=== PATIENT | female | born 1950 | race Caucasian/White ===

== ENCOUNTER 2019-05-02 15:13 | Outpatient (CLI) | payer MEDICARE, OTHER ==
--- NOTE | 2019-05-02 17:53 | MRI Report ---
Reason: HAND WEAKNESS, DYSARTHRIA, MEMORY LOSS Procedure Date: 05/02/2019 Accession Number: [id number] / [id number] Procedure: MRI - Brain W/O CPT Code: Final Report FULL RESULT: EXAM: MRI BRAIN WITHOUT CONTRAST EXAM DATE: 05/02/2019 04:55 PM. CLINICAL HISTORY: HAND WEAKNESS, DYSARTHRIA, MEMORY LOSS. COMPARISON: CT head without contrast 03/19/2019. TECHNIQUE: Multiplanar, multisequence T1-weighted and fluid-sensitive MR sequences of the brain were performed. Sequences optimized for routine evaluation. Other: None. IV Contrast: None. FINDINGS: Diffusion weighted sequence shows no evidence for acute infarct. There is no mass, mass effect, midline shift or abnormal extraaxial fluid collection. Size and configuration of the ventricles are normal. Trace T2 hyperintensities in the periventricular cerebral white matter. Signal within the cortex and white matter otherwise normal. Brainstem and cerebellum appear normal. Right medial frontal superior parafalcine dural based calcification measures 16 x 8 mm, unchanged. Major intracranial flow voids appear normal. Incidental enlargement of inferior [place] bilaterally, compatible with petrous apex cephalocele. Globes, orbits, optic nerve sheath complex, optic chiasm, pituitary, cavernous sinus and Meckel's cave appear otherwise normal. Paranasal sinuses and mastoid air cells appear well aerated. Marrow signal and extracranial soft tissue appear normal. Craniocervical junction and visualized upper cervical cord appear unremarkable. IMPRESSION: 1. No acute abnormality. No acute infarct, intracranial hemorrhage, midline shift or hydrocephalus. 2. 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 3. Mild diffuse cerebral volume loss without focal volume loss. Qualitatively, the hippocampi volumes appear symmetric without disproportionate volume loss. RADIA
--- NOTE | 2019-05-02 18:06 | MRI Report ---
Reason: DYSARTHRIA, HAND WEAKNESS, MEMORY LOSS Procedure Date: 05/02/2019 Accession Number: [id number] / [id number] Procedure: MRI - Cervical Spine W/O CPT Code: Final Report FULL RESULT: EXAM: MRI CERVICAL SPINE WITHOUT CONTRAST EXAM DATE: 05/02/2019 05:08 PM. CLINICAL HISTORY: DYSARTHRIA, HAND WEAKNESS, MEMORY LOSS. COMPARISONS: None. TECHNIQUE: Multiplanar, multisequence T1-weighted and fluid-sensitive sequences of the cervical spine without contrast. Other: None. FINDINGS: Neurologic Structures: The visualized posterior fossa structures are unremarkable. No signal abnormality in the visualized spinal cord. Alignment: No scoliosis or spondylolisthesis. Bone Marrow: T1 hyperintense T2 hyperintense typical hemangioma in the left paracentral T1. Multifocal typical hemangiomas with T1 hyperintensities in the left superolateral posterior C7 in the right posterolateral C6 and T1 vertebrae. Interspace Levels/Facets: C1-C2: Unremarkable. C2-C3: Unremarkable. C3-C4: Left greater than right uncovertebral hypertrophy. Moderate left mild right foraminal narrowing. No significant canal narrowing. C4-C5: Left greater than right facet arthropathy. Mild bilateral foraminal narrowing. No significant canal narrowing. C5-C6: Minimal bilateral uncovertebral hypertrophy. Mild bilateral foraminal narrowing. No significant canal narrowing. C6-C7: Minimal bilateral uncovertebral hypertrophy. No significant canal or foraminal narrowing. C7-T1: Unremarkable. Musculature: Normal. No edema or fatty atrophy. Other: Incidental 2.1 x 1.6 cm left thyroid nodule. The paravertebral and prevertebral soft tissues are normal. IMPRESSION: 1. Foraminal narrowing most pronounced on the left at C3-C4, could be correlated with left C4 radiculopathy if symptomatic. 2. No significant canal narrowing. No cord impingement or cord signal abnormality. 3. Incidental 2.1 cm left thyroid nodule. Given size, recommend follow-up ultrasound. RADIA
== END 2019-05-02 15:14 | disposition home or self-care (01) ==
LOC: DI 15:13
PROVIDERS: ATTEND Psychiatry & Neurology Neurology
DX: M54.12 Radiculopathy, cervical region (principal); M48.02 Spinal stenosis, cervical region; R29.898 Other symptoms and signs involving the musculoskeletal system; R47.1 Dysarthria and anarthria; R41.3 Other amnesia; E04.1 Nontoxic single thyroid nodule
CPT/HCPCS: 70551; 72141

== ENCOUNTER 2019-07-23 12:40 | Outpatient (CLI) | payer MEDICARE, OTHER ==
[2019-07-23 16:48] LABS: FOLATE > 49.60 ng/mL (5.90 - >24.8)
== END 2019-07-23 12:41 | disposition home or self-care (01) ==
LOC: LAB 12:40
PROVIDERS: ATTEND Psychiatry & Neurology Neurology
DX: G70.00 Myasthenia gravis without (acute) exacerbation (principal)
CPT/HCPCS: 36415; 81599; 82550; 82607; 82746; 83519; 86255

== ENCOUNTER 2020-07-05 16:57 | Outpatient (CLI) | payer MEDICARE, OTHER ==
[2020-07-05 17:22] LABS: BASOPHILS % (AUTO) 0.5 %; EOSINOPHILS # (AUTO) 0.1 10^3/uL (0.0-0.7); EOSINOPHILS % (AUTO) 1.6 %; HGB - HEMOGLOBIN 14.6 g/dL (12.0-16.0); LYMPHOCYTES % (AUTO) 38.9 %; MEAN CORPUSCULAR HEMOGLOBIN 30.9 pg (27.0-31.0); MEAN CORPUSCULAR HGB CONC 32.4 g/dL (32.0-36.0); MEAN CORPUSCULAR VOLUME 95.1 fL (81.0-99.0); MEAN PLATELET VOLUME 8.9 fL (7.9-10.8); MONOCYTES # (AUTO) 0.8 10^3/uL (0.0-1.0); MONOCYTES % (AUTO) 10.1 %; NEUTROPHILS # (AUTO) 3.8 10^3/uL (1.5-6.6); NEUTROPHILS % (AUTO) 48.8 %; PLT - PLATELET COUNT 271 10^3/uL (130-450); RED BLOOD COUNT 4.73 10^6/uL (4.20-5.40); RED CELL DISTRIBUTION WIDTH 12.2 % (12.0-15.0); WHITE BLOOD COUNT 7.7 x10^3/uL (4.8-10.8)
[2020-07-05 17:41] LABS: ALBUMIN 4.5 g/dL (3.2-5.5); ALBUMIN/GLOBULIN RATIO 1.4 (1.0-2.2); ALKALINE PHOSPHATASE 59 IU/L (42-121); ALT ALANINE AMINOTRANSFERASE 32 IU/L (10-60); AST ASPARTATE AMINOTRANSFERASE 28 IU/L (10-42); BILIRUBIN,TOTAL 0.4 mg/dL (0.2-1.0); BUN - BLOOD UREA NITROGEN 22 mg/dL (6-20); CALCIUM 9.6 mg/dL (8.5-10.3); CARBON DIOXIDE - CO2 26 mmol/L (21-32); CHLORIDE 101 mmol/L (101-111); CHOL/HDL RATIO 5.4 (<4.4); CHOLESTEROL 282 mg/dL; CREATININE 0.9 mg/dL (0.4-1.0); GLUCOSE 95 mg/dL (70-100); HDL CHOLESTEROL 52 mg/dL; LDL CHOLESTEROL,CALCULATED 163 mg/dL; LDL/HDL RATIO 3.1 (<4.4); TOTAL PROTEIN 7.7 g/dL (6.7-8.2); VLDL CHOLESTEROL 67 mg/dL
[2020-07-05 17:54] LABS: THYROID STIMULATING HORMONE 2.57 uIU/mL (0.34-5.60)
[2020-07-05 17:56] LABS: FREE T4 (FREE THYROXINE) 0.89 ng/dL (0.58-1.64)
== END 2020-07-05 16:58 | disposition home or self-care (01) ==
LOC: LAB 16:57
PROVIDERS: ATTEND Psychiatry & Neurology Neurology
DX: G70.00 Myasthenia gravis without (acute) exacerbation (principal); E03.9 Hypothyroidism, unspecified; E78.2 Mixed hyperlipidemia; I10 Essential (primary) hypertension
CPT/HCPCS: 36415; 80053; 80061; 83721; 84439; 84443; 85025

== ENCOUNTER 2020-08-05 14:44 | Outpatient (CLI) | payer MEDICARE, OTHER ==
--- NOTE | 2020-08-12 11:40 | Mammography Report ---
BILATERAL DIGITAL SCREENING MAMMOGRAM 3D/2D: 08/05/2020 CLINICAL: Routine screening. Comparison is made to exams dated: 09/26/2017 mammogram, 04/30/2016 mammogram, and 02/23/2013 mammogr am - [facility]. The tissue of both breasts is predominantly fatty. No significant masses, calcifications, or other findings are seen in either breast. There has been no significant interval change. IMPRESSION: NEGATIVE There is no mammographic evidence of malignancy. A 1 year screening mammogram is recommended. This exam was interpreted at Station ID: [id number]. NOTE: For mammograms, a report in lay terms will be sent to the patient. Approximately 15% of breast malignancies will not be visualized mammographically. In the management of a palpable breast mass, a negative mammogram must not discourage biopsy of a clinically suspicious lesion. Electronically Signed By: Bernard West acr/penrad:08/12/2020 08:39:58 ACR BI-RADS Category 1: Negative 3341F PARENCHYMAL PATTERN: (F) - The breast(s) demonstrate(s) diffuse fatty replacement. BI-RADS CATEGORY: (1) - 1 RECOMMENDATION: (ANNUAL) - Recommend routine annual screening mammography. [id number] 1 year screening LATERALITY: (B)
== END 2020-08-05 14:45 | disposition home or self-care (01) ==
LOC: DI 14:44
DX: Z12.31 Encounter for screening mammogram for malignant neoplasm of breast (principal)

== ENCOUNTER 2020-10-16 15:58 | Outpatient (CLI) | payer MEDICARE, OTHER ==
[2020-10-16 16:17] LABS: BASOPHILS % (AUTO) 0.4 %; EOSINOPHILS # (AUTO) 0.1 10^3/uL (0.0-0.7); EOSINOPHILS % (AUTO) 1.6 %; HCT - HEMATOCRIT 45.4 % (37.0-47.0); HGB - HEMOGLOBIN 14.9 g/dL (12.0-16.0); LYMPHOCYTES # (AUTO) 3.4 10^3/uL (1.5-3.5); LYMPHOCYTES % (AUTO) 41.2 %; MEAN CORPUSCULAR HEMOGLOBIN 30.6 pg (27.0-31.0); MEAN CORPUSCULAR HGB CONC 32.8 g/dL (32.0-36.0); MEAN CORPUSCULAR VOLUME 93.2 fL (81.0-99.0); MONOCYTES # (AUTO) 0.7 10^3/uL (0.0-1.0); MONOCYTES % (AUTO) 8.9 %; NEUTROPHILS # (AUTO) 3.9 10^3/uL (1.5-6.6); NEUTROPHILS % (AUTO) 47.7 %; PLT - PLATELET COUNT 289 10^3/uL (130-450); RED BLOOD COUNT 4.87 10^6/uL (4.20-5.40); RED CELL DISTRIBUTION WIDTH 12.1 % (12.0-15.0); WHITE BLOOD COUNT 8.3 x10^3/uL (4.8-10.8)
[2020-10-16 16:25] LABS: ALBUMIN 4.6 g/dL (3.2-5.5); ALBUMIN/GLOBULIN RATIO 1.4 (1.0-2.2); BILIRUBIN,TOTAL 0.4 mg/dL (0.2-1.0); CALCIUM 9.8 mg/dL (8.5-10.3); CREATININE 0.8 mg/dL (0.4-1.0); POTASSIUM 3.9 mmol/L (3.5-5.0); TOTAL PROTEIN 7.9 g/dL (6.7-8.2)
[2020-10-16] MEDS ORDERED: IOVERSOL 320 100 ML VIAL IVP ONE ×2 (18:09→18:48)
--- NOTE | 2020-10-17 10:56 | CT Report ---
PROCEDURE: CHEST W INDICATIONS: Myasthenia gravis CONTRAST: IV CONTRAST: Optiray 320 ml: 100 PO CONTRAST: *NO PO CONTRAST TECHNIQUE: After the administration of intravenous contrast, 5 mm thick sections acquired from the pulmonary api pranav to the posterior costophrenic angles. 7 mm thick coronal MIP reformats were acquired. For radia tion dose reduction, the following was used: automated exposure control, adjustment of mA and/or kV according to patient size. COMPARISON: None. FINDINGS: Image quality: Excellent. Lungs and pleura: No acute air space opacities. No pleural effusions or pneumothorax. Central and peripheral airways are patent and normal in caliber. Mediastinum: Heart size is normal. No pericardial effusion. No mediastinal or hilar adenopathy by size criteria. There is no sign of thymoma within the anterior mediastinum. Thoracic aorta and centr al pulmonary arteries are normal in size. Esophagus is normal in caliber. No hiatal hernia. Bones and chest wall: No suspicious bony lesions. No vertebral body compression fractures. No axil tone or supraclavicular adenopathy by size criteria. The thyroid is asymmetric, virtually absent on the right, without visualized surgical clips, and with a heterogeneous nodule mildly enlarging the le ft thyroid lobe, measuring up to 2.2 cm in maximal AP dimension... Abdomen: Visualized upper abdominal solid organs appear normal. Upper abdominal bowel loops are nor mal in caliber. IMPRESSION: No evidence of thymoma or other mass lesion throughout the chest or visualized upper abdomen. There is an unexpected finding of a thyroid mass on the left, measuring up to 2.2 cm, and virtual abs ence of the right thyroid lobe without surgical clips. No comparison study is available to establish chronicity of this finding. Please refer to the clinical recommendation statement below regarding rec ommendation for obtaining a dedicated left thyroid ultrasound in this patient. If old comparison ches t CT scanning is available for review it would be valuable to obtain related to the thyroid abnormali ty. CLINICAL RECOMMENDATION STATEMENTS: In patients <35 years with an ITN detected on CT, MRI, or extrathyroidal ultrasound, the Committee re commends further evaluation with dedicated thyroid ultrasound if the nodule is ?1 cm and has no suspi cious imaging features, and if the patient has normal life expectancy. In patients ?35 years with an ITN detected on CT, MRI, or extrathyroidal ultrasound, the Committee re commends further evaluation with dedicated thyroid ultrasound if the nodule is ?1.5 cm and has no feroz picious imaging features, and if the patient has normal life expectancy. (ACR, 2014) Reviewed by: Dwight Joseph MD on 10/17/2020 9:55 AM JOSE Approved by: Dwight Joseph MD on 10/17/2020 9:55 AM JOSE Station ID: [id number]
== END 2020-10-16 15:59 | disposition home or self-care (01) ==
LOC: LAB 15:58
PROVIDERS: ATTEND Psychiatry & Neurology Neurology
DX: G70.00 Myasthenia gravis without (acute) exacerbation (principal); E07.89 Other specified disorders of thyroid
CPT/HCPCS: 36415; 71260; 80053; 85025; Q9967

== ENCOUNTER 2020-11-01 09:02 | Outpatient (CLI) | payer MEDICARE, OTHER ==
--- NOTE | 2020-11-01 18:33 | Ultrasound Report ---
PROCEDURE: Head or Neck Soft Tissue INDICATIONS: LEFT THYROID NODULE TECHNIQUE: Real-time scanning was performed of the thyroid gland, with image documentation. COMPARISON: None FINDINGS: Right: Thyroid lobe is surgically absent Left: Thyroid lobe measures 4.8 x 2.2 x 2.0 cm, and contains a dominant solid thyroid nodule Isthmus: 4 mm thick. Nodule number: 1 Location: Left lobe Size: 2.3 x 1.9 x 2.0 cm. Composition: Solid Echogenicity: Hypoechoic Shape: Wider than tall. Margins: Smooth Echogenic foci: None Total points: ? ACR TI-RADS category: Moderately suspicious IMPRESSION: There is a moderately suspicious left thyroid nodule measuring 2.3 cm in maximum diamete r. Recommendations are to sample this lesion utilizing ultrasound-guided FNA, unless this nodule has been sampled recently. ACR TI-RADS definitions and recommendations: TI-RADS 1 (benign): 0 points. FNA not needed. TI-RADS 2 (not suspicious): 2 points. FNA not needed. TI-RADS 3 (mildly suspicious): 3 points. ? FNA if 2.5 cm or larger, follow up if 1.5 cm or larger (at 1, 3, and 5 years). TI-RADS 4 (moderately suspicious): 4-6 points. ? FNA if 1.5 cm or larger, follow up if 1 cm or larger (at 1, 2, 3, and 5 years). TI-RADS 5 (highly suspicious): 7 points or more. ? FNA if 1 cm or larger, follow up if 0.5 cm or larger (every year for 5 years). Reviewed by: Earl Owusu MD on 11/01/2020 5:31 PM JOSE Approved by: Earl Owusu MD on 11/01/2020 5:31 PM JOSE Station ID: [id number]
== END 2020-11-01 09:03 | disposition home or self-care (01) ==
LOC: DI 09:02
PROVIDERS: ATTEND Family Medicine
DX: E04.1 Nontoxic single thyroid nodule (principal)

== ENCOUNTER 2021-06-19 17:29 | Outpatient (CLI) | payer MEDICARE, OTHER ==
[2021-06-19 20:01] LABS: BASOPHILS % (AUTO) 0.4 %; EOSINOPHILS # (AUTO) 0.1 10^3/uL (0.0-0.7); EOSINOPHILS % (AUTO) 1.1 %; HCT - HEMATOCRIT 46.9 % (37.0-47.0); HGB - HEMOGLOBIN 15.3 g/dL (12.0-16.0); LYMPHOCYTES # (AUTO) 3.6 10^3/uL (1.5-3.5); LYMPHOCYTES % (AUTO) 39.1 %; MEAN CORPUSCULAR HEMOGLOBIN 30.6 pg (27.0-31.0); MEAN CORPUSCULAR HGB CONC 32.6 g/dL (32.0-36.0); MEAN CORPUSCULAR VOLUME 93.8 fL (81.0-99.0); MEAN PLATELET VOLUME 9.9 fL (7.9-10.8); MONOCYTES # (AUTO) 0.8 10^3/uL (0.0-1.0); MONOCYTES % (AUTO) 8.2 %; NEUTROPHILS # (AUTO) 4.7 10^3/uL (1.5-6.6); NEUTROPHILS % (AUTO) 50.8 %; PLT - PLATELET COUNT 310 10^3/uL (130-450); RED CELL DISTRIBUTION WIDTH 12.5 % (12.0-15.0); WHITE BLOOD COUNT 9.3 x10^3/uL (4.8-10.8)
[2021-06-19 20:17] LABS: ALBUMIN 4.6 g/dL (3.2-5.5); ALBUMIN/GLOBULIN RATIO 1.4 (1.0-2.2); BILIRUBIN,TOTAL 0.8 mg/dL (0.2-1.0); CALCIUM 9.8 mg/dL (8.5-10.3); CREATININE 0.7 mg/dL (0.4-1.0); TOTAL PROTEIN 7.8 g/dL (6.7-8.2)
== END 2021-06-19 17:30 | disposition home or self-care (01) ==
LOC: LAB.S 17:29
PROVIDERS: ATTEND Psychiatry & Neurology Neurology
DX: G70.00 Myasthenia gravis without (acute) exacerbation (principal)
CPT/HCPCS: 36415; 80053; 85025

== ENCOUNTER 2022-10-01 12:03 | Outpatient (CLI) | payer MEDICARE, OTHER ==
--- NOTE | 2022-10-01 13:40 | Ultrasound Report ---
PROCEDURE: Duplex Ext Veins Bilateral INDICATIONS: Maddie Humphrey MD TECHNIQUE: Real-time imaging, as well as color and pulse Doppler interrogation, were performed of the deep veins of both legs from the inguinal ligament to the popliteal fossa. COMPARISON: None FINDINGS: The deep veins are normally compressible, and free of intraluminal thrombus. Color and pu lse Doppler demonstrate normal phasic intravascular flow. There is normal augmentation response to d istal compression maneuver. IMPRESSION: 1. No DVT in either lower extremity. Reviewed by: Larissa Mendez MD on 10/01/2022 1:39 PM PDT Approved by: Larissa Mendez MD on 10/01/2022 1:39 PM PDT Station ID: [id number]
== END 2022-10-01 12:04 | disposition home or self-care (01) ==
LOC: DI 12:03
PROVIDERS: ATTEND Family Medicine
DX: R60.0 Localized edema (principal)
CPT/HCPCS: 93970

== ENCOUNTER 2023-02-28 13:35 | Outpatient (CLI) | payer MEDICARE, OTHER ==
--- NOTE | 2023-03-01 09:38 | Mammography Report ---
BILATERAL DIGITAL SCREENING MAMMOGRAM 3D/2D: 02/28/2023 CLINICAL: Routine screening. Comparison is made to exams dated: 08/05/2020 mammogram - [facility], 09/26/2017 [facility], and 04/30/2016 mammogram - [facility]. Both breasts are almost entirely fatty (category a/<25% glandular tissue). No significant masses, calcifications, or other findings are seen in either breast. There has been no significant interval change. IMPRESSION: NEGATIVE There is no mammographic evidence of malignancy. A 1 year screening mammogram is recommended. Based on the Tyrer Cuzick model (a risk assessment model) the patients lifetime risk is 2.0% and her 10 year risk is 1.5%. According to the ACR, ACS, and NCCN guidelines, an annual breast MRI exam katharina g with mammogram is recommended if the patients lifetime risk is 20% or greater. This exam was interpreted at Station ID: [id number]. NOTE: For mammograms, a report in lay terms will be sent to the patient. Approximately 15% of breast malignancies will not be visualized mammographically. In the management of a palpable breast mass, a negative mammogram must not discourage biopsy of a clinically suspicious lesion. Electronically Signed By: Larissa toussaint/john:02/28/2023 17:20:30 letter sent: No_Letter ACR BI-RADS Category 1: Negative 3341F PARENCHYMAL PATTERN: (F) - The breast(s) demonstrate(s) diffuse fatty replacement. BI-RADS CATEGORY: (1) - 1 Mammogram [id number] 1 year screening LATERALITY: (B)
== END 2023-02-28 13:36 | disposition home or self-care (01) ==
LOC: DI 13:35
DX: Z12.31 Encounter for screening mammogram for malignant neoplasm of breast (principal)

== ENCOUNTER 2023-05-28 02:19 | Emergency (ER) | payer MEDICARE, OTHER ==
[2023-05-28 02:55] VITALS: BP 159/74; O2SAT 96
--- NOTE | 2023-05-28 03:08 | ED Physician Documentation ---
History of Present Illness - Stated complaint Stated Complaint: GI - Chief complaint Chief Complaint: Abd Pain - History obtained from History obtained from: Patient - Additonal information Additional information: HPI from patient. Patient c/o perianal pain since yesterday, gradual onset, constant, and steadily progressive. She has tried applying cortisone and lidocaine (in patch form) and has taken ibuprofen; none of these interventions provided relief of her pain. She has a shower but not a bathtub; has been trying to apply warm water to the area with a shower wand but this also has not provided adequate relief. Denies fever, denies blood in stool. Review of Systems GI: denies: Abdominal Pain PD PAST MEDICAL HISTORY - Past Medical History Past Medical History: Yes Cardiovascular: Hypertension, High cholesterol Endocrine/Autoimmune: HyPOthyroidism GI: Diverticulitis - Past Surgical History Past Surgical History: Yes General: Cholecystectomy - Present Medications Home Medications: Ambulatory Orders Medication Instructions Recorded Confirmed Levothyroxine [Synthroid] 44 mcg PO QDAC 04/21/16 05/28/23 Aspirin EC [Ecotrin] 81 mg PO DAILY 10/27/20 05/28/23 Cholecalciferol (Vitamin D3) 125 mcg PO DAILY 10/27/20 05/28/23 [Vitamin D3] Cyanocobalamin (Vitamin B-12) 500 mcg SL DAILY 10/27/20 05/28/23 [Vitamin B-12 (500 mcg sublingual)] Folic Acid 0.5 mg PO DAILY 10/27/20 05/28/23 Multivitamin [Theragran] 1 tab PO DAILY 10/27/20 05/28/23 [place]-3/Dha/Epa/Fish Oil [Fish Oil 1,200 mg PO DAILY 10/27/20 05/28/23 1,200 mg Softgel] lisinopriL [Zestril] 5 mg PO DAILY 10/27/20 05/28/23 Atorvastatin [Lipitor] 20 mg PO QPM 05/28/23 05/28/23 Lidocaine Ointment 5% [Xylocaine 1 applic TOP QID PRN #35.44 gm 05/28/23 Ointment 5%] Nitroglycerin [Rectiv] 1 applic RC BID PRN #30 gm 05/28/23 polyethylene glycoL 3350 1 appful PO DAILY 05/28/23 05/28/23 [Polyethylene Glycol 3350] - Allergies Allergies/Adverse Reactions: Allergies Allergy/AdvReac Type Severity Reaction Status Date / Time coderaúl HuizarReac Pamelainati Verified 05/28/23 02:32 ons - Social History Does the pt smoke?: No Smoking Status: Never smoker Does the pt drink ETOH?: Yes Does the pt have substance abuse?: No - Immunizations Immunizations are current?: Yes - POLST Patient has POLST: No PD ED PE NORMAL - Vitals Vital signs reviewed: Yes - General General: Alert and oriented X 3, No acute distress, Well developed/nourished - Abdomen Abdomen: Soft, Non tender PD ED PE EXPANDED - Rectal Rectal: Hemorrhoid (bilateral soft, reducible hemorrhoids without discoloration (no erythema, no blue discoloration). there is considerable patient discomfort with reduction of the hemorrhoids), Optical Worker present. No: Mass, Fissure Results - Vitals Vitals: Oxygen O2 Source Room air PD Medical Decision Making - ED course Complexity details: considered differential, d/w patient ED course: Painful but reducible hemorrhoids without evidence of thrombosis nor infection/inflammation. She says she has oxycodone at home and thus declines rx. I am providing prescriptions for rectiv as well as lidocaine/hydrocortisone Departure - Departure Disposition: Home, Self Care Clinical Impression: Hemorrhoids Condition: Good Instructions: ED Hemorrhoids Prescriptions: Nitroglycerin [Rectiv] 1 applic RC BID PRN #30 gm PRN Reason: Hemorrhoids Lidocaine Ointment 5% [Xylocaine Ointment 5%] 1 applic TOP QID PRN #35.44 gm PRN Reason: Hemorrhoids Comments: I electronically submitted prescriptions to the [facility] in [place] for 2 different medications. Topical lidocaine ointment (a numbing agent) and nitroglycerin(can help with the pain associated with hemorrhoids, but side effects are common, particularly headache). Contact your primary care provider when the office is next open to arrange for follow-up appointment. Forms: PCP List Discharge Date/Time: 05/28/23 03:59
[2023-05-28] MEDS ORDERED: LIDOCAINE VISCOUS 2% 15 ML ORAL SYRINGE MM STA (03:37)
== END 2023-05-28 03:59 | disposition home or self-care (01) ==
LOC: ED 02:19
DX: K64.9 Unspecified hemorrhoids (principal)
CPT/HCPCS: 99282; 99283

== ENCOUNTER 2023-10-12 08:39 | Outpatient (CLI) | payer MEDICARE, OTHER ==
--- NOTE | 2023-10-14 08:58 | Mammography Report ---
UNILATERAL LEFT DIGITAL DIAGNOSTIC MAMMOGRAM 3D/2D: 10/12/2023 CLINICAL: Focal left breast pain. Comparison is made to exams dated: 02/28/2023 mammogram, 08/05/2020 mammogram - [facility], 09/26/2017 mammogram, and 04/30/2016 mammogram - [facility]. There are scattered areas of fibroglandular density in the left breast (category b / 25%-50% glandula r tissue). No significant masses, calcifications, or other findings are seen in the breast. IMPRESSION: INCOMPLETE: NEEDS ADDITIONAL IMAGING EVALUATION There are no mammographic abnormalities seen in the left breast to correspond with the palpable nodul arities, however, targeted ultrasound of the left breast is recommended. Based on the Tyrer Cuzick model (a risk assessment model) the patient's lifetime risk is 2.9% and her 10 year risk is 2.3%. According to the ACR, ACS, and NCCN guidelines, an annual breast MRI exam katharina g with mammogram is recommended if the patient's lifetime risk is 20% or greater. This exam was interpreted at Station ID: [id number]. NOTE: For mammograms, a report in lay terms will be sent to the patient. Approximately 15% of breast malignancies will not be visualized mammographically. In the management of a palpable breast mass, a negative mammogram must not discourage biopsy of a clinically suspicious lesion. Electronically Signed By: Maddie Polanco M.D. lk/:10/14/2023 08:44:30 ACR BI-RADS Category 0: Incomplete 3340F PARENCHYMAL PATTERN: (A) - The breast(s) demonstrate(s) scattered fibroglandular densities. BI-RADS CATEGORY: (0) - 0 Ultrasound [id number] Immediate follow-up LATERALITY: (B)
== END 2023-10-12 08:40 | disposition home or self-care (01) ==
LOC: DI 08:39
PROVIDERS: ATTEND Family Medicine
DX: N64.4 Mastodynia (principal); R92.322 Mammographic fibroglandular density, left breast

== ENCOUNTER 2023-10-21 12:55 | Outpatient (CLI) | payer MEDICARE, OTHER ==
--- NOTE | 2023-10-24 09:14 | Ultrasound Report ---
LIMITED ULTRASOUND OF LEFT BREAST: 10/21/2023 CLINICAL: Left Breast palp area. Comparison is made to exams dated: 10/12/2023 mammogram, 02/28/2023 mammogram, and 08/05/2020 mammogra - [facility]. Color flow ultrasound of the left breast 7 o'clock region was performed. Mcintyre scale images of the r eal-time examination were reviewed. No sonographic abnormality is seen in the area of clinical concern in the retroareolar region at 7 o' clock. IMPRESSION: NEGATIVE No sonographic abnormality in the area of clinical concern. No sonographic evidence of malignancy. Re turn to annual mammogram screening schedule is recommended, which patient will be due for in February 2024. Clinical follow-up is also recommended, and further management of palpable abnormalities or other foc al signs or symptoms should be based on the results of clinical evaluation. If palpable abnormality o r other concerning symptom persists or progresses, further clinical evaluation should be considered. F Findings and recommendations were conveyed to the patient during today's evaluation. This exam was interpreted at Station ID: [id number]. Electronically Signed By: Carmela Stephen M.D., Ph.D. eb/:10/21/2023 13:34:37 Ultrasound BI-RADS: 1 Negative BI-RADS CATEGORY: (1) - 1 Mammogram [id number] return to screening LATERALITY: (B)
== END 2023-10-21 12:56 | disposition home or self-care (01) ==
LOC: DI 12:55
PROVIDERS: ATTEND Family Medicine
DX: N64.4 Mastodynia (principal); N63.20 Unspecified lump in the left breast, unspecified quadrant

== ENCOUNTER 2023-11-21 12:37 | Emergency (ER) | payer MEDICARE, OTHER ==
[2023-11-21 13:35] LABS: BASOPHILS % (AUTO) 0.5 %; EOSINOPHILS # (AUTO) 0.1 10^3/uL (0.0-0.7); EOSINOPHILS % (AUTO) 1.7 %; HCT - HEMATOCRIT 45.5 % (37.0-47.0); HGB - HEMOGLOBIN 15.1 g/dL (12.0-16.0); LYMPHOCYTES # (AUTO) 2.7 10^3/uL (1.5-3.5); LYMPHOCYTES % (AUTO) 42.4 %; MEAN CORPUSCULAR HEMOGLOBIN 30.8 pg (27.0-31.0); MEAN CORPUSCULAR HGB CONC 33.2 g/dL (32.0-36.0); MEAN CORPUSCULAR VOLUME 92.9 fL (81.0-99.0); MEAN PLATELET VOLUME 9.1 fL (7.9-10.8); MONOCYTES # (AUTO) 0.5 10^3/uL (0.0-1.0); MONOCYTES % (AUTO) 8.4 %; NEUTROPHILS # (AUTO) 2.9 10^3/uL (1.5-6.6); NEUTROPHILS % (AUTO) 46.7 %; PLT - PLATELET COUNT 255 10^3/uL (130-450); RED CELL DISTRIBUTION WIDTH 12.4 % (12.0-15.0); WHITE BLOOD COUNT 6.3 x10^3/uL (4.8-10.8)
--- NOTE | 2023-11-21 13:57 | XRAY Report ---
PROCEDURE: Chest 1V INDICATIONS: Chest pain TECHNIQUE: One view of the chest was acquired. COMPARISON: chest CT 10/16/2020. FINDINGS: Surgical changes and devices: None. Lungs and pleura: No pleural effusions or pneumothorax. Lungs are clear. Mediastinum: Mediastinal contours appear normal. Heart size is normal. Bones and chest wall: No suspicious bony lesions. Overlying soft tissues appear unremarkable. IMPRESSION: No acute cardiopulmonary process. Reviewed by: Jonny Chan MD on 11/21/2023 1:56 PM PDT Approved by: Jonny Chan MD on 11/21/2023 1:56 PM PDT Station ID: [id number]
[2023-11-21 13:58] LABS: ALBUMIN 4.8 g/dL (3.2-5.5); ALBUMIN/GLOBULIN RATIO 1.7 (1.0-2.2); CALCIUM 10.4 mg/dL (8.5-10.3); CREATININE 0.8 mg/dL (0.6-1.3); POTASSIUM 4.3 mmol/L (3.5-4.5); TOTAL PROTEIN 7.6 g/dL (6.4-8.9)
[2023-11-21 14:06] LABS: TROPONIN I HIGH SENSITIVITY 3.6 ng/L (2.3-14.8)
--- NOTE | 2023-11-21 17:48 | ED Physician Documentation ---
PD HPI CHEST PAIN - Stated complaint Stated Complaint: CHEST PX - Chief complaint Chief Complaint: Cardiac - History obtained from History obtained from: Patient - History of Present Illness Timing - onset: How many days ago (3) Timing - duration: Minutes (20) Pain level max: 8 Pain level now: 0 Quality: Indigestion Improved by: Antacids Worsened by: No: Exertion, Inspiration, Eating, Movement, Palpation, Position Associated symptoms: No: Shortness of air, Diaphoresis, Nausea, Vomiting, Feeling faint / dizzy, General Weakness, Palpitations, Cough Similar symptoms before: Has not had sx before - Additional information Additional information: 73-year-old female states that she had about 20 minutes of chest pain 3 days ago. It was substernal, radiated up towards her neck. She states it felt like "bad indigestion". No change with exertion. No cardiac history. 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 No fevers. No chills. No diaphoresis. No li ghtheadedness or dizziness. No vision changes. No abdominal pain. She states that it felt like bad gastric reflux. Improved with an antiacid. She contacted her doctor this morning for a follow-up appointment and they referred her to the emergency department for a "cardiac workup". Patient is not on blood thinners. No leg swelling. No recent travel. No pleuritic chest pain. Patient is cur rently asymptomatic. Review of Systems Constitutional: denies: Fever, Chills Nose: denies: Rhinorrhea / runny nose, Congestion Cardiac: denies: Palpitations Respiratory: denies: Dyspnea, Cough, Wheezing GI: denies: Abdominal Pain, Nausea, Vomiting, Diarrhea Skin: denies: Rash Musculoskeletal: denies: Neck pain, Back pain Neurologic: denies: Focal weakness, Numbness, Headache PD PAST MEDICAL HISTORY - Past Medical History Cardiovascular: Hypertension, High cholesterol Endocrine/Autoimmune: HyPOthyroidism GI: Diverticulitis - Past Surgical History Past Surgical History: Yes General: Cholecystectomy Ortho: Spine surgery - Present Medications Home Medications: Ambulatory Orders Medication Instructions Recorded Confirmed Levothyroxine [Synthroid] 44 mcg PO QDAC 04/21/16 11/21/23 Aspirin EC [Ecotrin] 81 mg PO DAILY 10/27/20 11/21/23 Cholecalciferol (Vitamin D3) 125 mcg PO DAILY 10/27/20 11/21/23 [Vitamin D3] Cyanocobalamin (Vitamin B-12) 500 mcg SL DAILY 10/27/20 11/21/23 [Vitamin B-12 (500 mcg sublingual)] Folic Acid 0.5 mg PO DAILY 10/27/20 11/21/23 Multivitamin [Theragran] 1 tab PO DAILY 10/27/20 11/21/23 [place]-3/Dha/Epa/Fish Oil [Fish Oil 1,200 mg PO DAILY 10/27/20 11/21/23 1,200 mg Softgel] lisinopriL [Zestril] 5 mg PO DAILY 10/27/20 11/21/23 Atorvastatin [Lipitor] 20 mg PO QPM 05/28/23 11/21/23 metFORMIN [Glucophage] 1 tab PO DAILY 11/21/23 11/21/23 - Allergies Allergies/Adverse Reactions: Allergies Allergy/AdvReac Type Severity Reaction Status Date / Time codeine AdvReac Hallucinati Verified 07/17/23 09:30 ons - Social History Does the pt smoke?: No Smoking Status: Never smoker Does the pt drink ETOH?: Yes Does the pt have substance abuse?: No - Immunizations Immunizations are current?: Yes - POLST Patient has POLST: No PD ED PE NORMAL - Vitals Vital signs reviewed: Yes - General General: Alert and oriented X 3, No acute distress - HEENT HEENT: PERRL, Moist mucous membranes - Neck Neck: Supple, no meningeal sign - Cardiac Cardiac: RRR, Strong equal pulses - Respiratory Respiratory: No respiratory distress, Clear bilaterally - Abdomen Abdomen: Soft, Non tender, Non distended - Derm Derm: Warm and dry - Extremities Extremities: No edema, No calf tenderness / cord - Neuro Neuro: Alert and oriented X 3 - Psych Psych: Normal mood, Normal affect Results - Vitals Vitals: Vital Signs - 24 hr 11/21/23 11/21/23 11/21/23 13:08 17:05 17:15 Temperature 36.8 C Heart Rate 77 71 Respiratory 18 18 Rate Blood Pressure 140/100 H 130/85 H Blood Pressure 130/85 H [Left] Blood Pressure 149/98 H [Right] O2 Saturation 96 98 11/21/23 18:31 Temperature Heart Rate 72 Respiratory 16 Rate Blood Pressure 139/74 H Blood Pressure [Left] Blood Pressure [Right] O2 Saturation 100 Oxygen O2 Source Room air - EKG (time done) 1314 EKG releavant findings:: EKG personally interpreted by author of this note. Relevant findings are: Rate: Rate (enter#) (74) Rhythm: NSR [place]: Normal Intervals: Normal ND QRS: Normal Ischemia: ST elevation c/w ischemia - Labs Labs: Laboratory Tests 11/21/23 11/21/23 13:31 13:31 WBC 6.3 RBC 4.90 Hgb 15.1 Hct 45.5 MCV 92.9 MCH 30.8 MCHC 33.2 RDW 12.4 Plt Count 255 MPV 9.1 Neut # (Auto) 2.9 Lymph # (Auto) 2.7 [place] # (Auto) 0.5 Eos # (Auto) 0.1 Baso # (Auto) 0.0 Absolute Nucleated RBC 0.00 Nucleated RBC % 0.0 Sodium 139 Potassium 4.3 Chloride 103 Carbon Dioxide 30 Anion Gap 6.0 BUN 17 Creatinine 0.8 Estimated GFR (MDRD) 70 L Glucose 118 H Calcium 10.4 H Total Bilirubin 1.0 AST 42 ALT 48 Alkaline Phosphatase 67 Troponin I High Sens 3.6 Total Protein 7.6 Albumin 4.8 Globulin 2.8 Albumin/Globulin Ratio 1.7 Lipase 19 - Rads (name of study) cxr Relevant Findings:: Final report received, See rad report PD Medical Decision Making - ED course Complexity details: reviewed results, re-evaluated patient, considered differential (No ST elevation [place], no aortic dissection, no PE, no tension pneumothorax, no aortic aneurysm), d/w patient ED course: 73-year-old female with 20 minutes of chest pain 3 days ago. No acute findings on EKG, chest x-ray, laboratory testing. Negative high sensitive troponin. Asymptomatic here. No exertional chest pain. Symptoms do not sound consistent with unstable angina. Has not had similar symptoms previously or since. Recommend that she has a cardiac stress test with her doctor. Patient is well- appearing, nontoxic. Afebrile. No evidence of pulmonary embolism, aortic dissection. No evidence of acute coronary syndrome. Patient counseled regarding signs and symptoms for which I believe and urgent re-evaluation would be necessary. Patient with good understanding of and agreement to plan and is comfortable going home at this time This document was made in part using voice recognition software. While efforts are made to proofread this document, sound alike and grammatical errors may occur. Departure - Departure Disposition: 01 Home, Self Care Clinical Impression: Chest pain Qualifiers: Chest pain type: unspecified Qualified Code(s): R07.9 - Chest pain, unspecified Condition: Good Instructions: ED Chest Pain Atypical Unkn Cause Follow-Up: Maddie Humphrey MD [Primary Care Provider] - Within 1 week Comments: Please follow-up with your doctor for further care. Your chest x-ray, EKG and troponin do not show any evidence of heart attack today. It is recommended that you have a cardiac stress test with your doctor. Please return if you worsen. Forms: PCP List Discharge Date/Time: 11/21/23 18:11
[2023-11-21 18:33] VITALS: BP 139/74; O2SAT 100
== END 2023-11-21 18:11 | disposition home or self-care (01) ==
LOC: ED 12:37
DX: R07.9 Chest pain, unspecified (principal); I10 Essential (primary) hypertension; E78.00 Pure hypercholesterolemia, unspecified; E03.9 Hypothyroidism, unspecified; Z79.899 Other long term (current) drug therapy; Z79.82 Long term (current) use of aspirin; Z79.84 Long term (current) use of oral hypoglycemic drugs
CPT/HCPCS: 36415; 80053; 83690; 84484; 85025; 93005; 99283; 99284